=== PATIENT | male | born 1945 | race Two or more races ===

== ENCOUNTER 2017-05-10 11:25 | Emergency (ER) | payer MEDICARE, MEDICAID ==
[~2017-05-10] VITALS: Ht 167.6 cm; Wt 63.5 kg
[~2017-05-10 11:25] MED LIST: CLARITIN10 M2 PO; COZAAR25 MG PO; NORVASC5 MG PO; PRIMIDONE50 MG PO; SIMVASTATIN10 MG PO
[2017-05-10] MEDS ORDERED: METOPROLOL TART50 M1 ORAL (12:14)
[2017-05-10] MEDS ORDERED: IBUPROFEN600 MG ORAL (12:27)
[2017-05-10] MEDS ORDERED: ZITHROMAX250 MG ORAL (12:27)
[2017-05-10] MEDS ORDERED: PROMETHAZINE-D118 ML ORAL (12:27)
[2017-05-10 13:21] VITALS: BP 133/79
[2017-05-10 13:22] VITALS: BP 133/79
--- NOTE | 2017-05-10 14:31 | Emergency Room Report ---
History of Present Illness General Chief Complaint: Upper Respiratory Illness Source: Patient (NA BAXTER) Present Illness HPI The patient is a 72-year-old male presenting for cough since yesterday. He states that his son has the same symptoms. He is expressing an 8/10 dull ache to the back of the throat. Worse with swallowing. He denies any recent travel. He denies fever, chills, shortness of breath, chest pain, hemoptysis (NA BAXTER) Allergies: Coded Allergies: No Known Allergies (Unverified , 04/19/12) Patient History Past Medical History: see triage record Pertinent Family History: none Reviewed Nursing Documentation: PMH: Agreed, PSxH: Agreed (NA BAXTER) Nursing Documentation-PMH Hx Hypertension: Yes (NA BAXTER) Review of Systems All Other Systems: negative except mentioned in HPI (NA BAXTER) Physical Exam Vital Signs Date Time Temp Pulse Resp B/P (MAP) Pulse Ox O2 Delivery O2 Flow Rate FiO2 05/10/17 12:09 99.1 64 16 133/79 96 Room Air Sp02 EP Interpretation: reviewed, normal General Appearance: no apparent distress, alert, GCS 15, non-toxic Head: normocephalic, atraumatic Eyes: bilateral eye normal inspection, bilateral eye PERRL ENT: hearing grossly normal, normal pharynx, no angioedema, normal voice, uvula midline, pharyngeal erythema Neck: full range of motion, supple/symm/no masses Respiratory: chest non-tender, normal breath sounds, no respiratory distress, no accessory muscle use, speaking full sentences, wheezing - RLL Cardiovascular #1: regular rate, rhythm, no edema Musculoskeletal: back normal, gait/station normal, normal range of motion, non- tender Neurologic: alert, oriented x3, responsive, motor strength/tone normal, sensory intact, speech normal Psychiatric: judgement/insight normal, memory normal, mood/affect normal, no suicidal/homicidal ideation Skin: normal color, no rash, warm/dry, well hydrated Lymphatic: no adenopathy (NA BAXTER) Medical Decision Making PA Attestation Dr. Benitez is my supervising physician. Patient management was discussed with my supervising physician (NA BAXTER) Medicare Attestation I, Callie Benitez MD hereby attest that the medical record entry accurately reflects signatures/notations that I made in my capacity as MD when I treated/ diagnosed the above listed Medicare beneficiary. I attest that this information is true, accurate and complete to the best of my knowledge. I understand that any falsification, omission, or concealment of material fact may subject me to administrative, civil, or criminal liability. This patient warrants hospital admission for extreme of age and has a condition that cannot be treated as outpatient. (Callie Benitez M.D.) Diagnostic Impression: Primary Impression: Pharyngitis, acute Qualified Codes: J02.9 - Acute pharyngitis, unspecified ER Course The patient is a 72-year-old male presenting for cough since yesterday. Differential diagnosis include but not limited to pharyngitis, sinusitis, AOM, bronchitis, PNA Physical exam: Vitals within normal limits. Afebrile. No apparent distress HEENT exam: There is pharyngeal erythema. Uvula midline. Moist mucous membranes. Lungs: RLL minimal wheezing, cleared with cough Skin is warm and dry. No rash The patient will be discharged home with a prescription for azithromycin, motrin , cough medication and is given ER precautions. Patient will followup with primary care (NA BAXTER) Last Vital Signs Date Time Temp Pulse Resp B/P (MAP) Pulse Ox O2 Delivery O2 Flow Rate FiO2 05/10/17 13:22 99.1 16 133/79 96 Room Air 05/10/17 13:21 64 Status: improved (NA BAXTER) Disposition: HOME, SELF-CARE Condition: Improved Scripts Azithromycin* (ZITHROMAX*) 250 Mg Tablet 250 MG ORAL DAILY, #6 TAB 0 Refills Take two tables once daily for 1 day, then one tablet once daily for 4 days. Prov: NA BAXTER P.A. 05/10/17 D-Methorphan Hb/Prometh Hcl* (PROMETHAZINE-DM SYRUP*) 118 Ml Syrup 5 ML ORAL Q6H Y for For Cough, #118 ML 0 Refills Prov: NA BAXTER P.A. 05/10/17 Ibuprofen* (MOTRIN*) 600 Mg Tablet 600 MG ORAL Q8H Y for For Pain, #30 TAB 0 Refills Prov: NA BAXTER 05/10/17 Referrals: [facility] (PCP) Patient Instructions: Pharyngitis Additional Instructions: I discussed my findings with the patient. All questions and concerns have been answered. Treatment and medication compliance have been addressed. I advised the patient that they need to follow up with PMD in 3-5 days. Return to ED if pain remains or worsens, cough worsens or remains, you notice blood in your sputum, you notice wheezing, you experience a fever, or if needed for any reason. Patient verbalized understanding of discharge instructions. NA BAXTER May 10, 2017 14:31 Callie Benitez M.D. May 15, 2017 13:52
== END 2017-05-10 13:23 | disposition home or self-care (01) ==
LOC: EMR 11:55
DX: J02.9 Acute pharyngitis, unspecified (principal); I10 Essential (primary) hypertension
CPT/HCPCS: 99284

== ENCOUNTER 2018-07-18 09:09 | Outpatient (CLI) | payer MEDICARE, MEDICAID ==
[~2018-07-18] VITALS: Ht 167.6 cm; Wt 82.6 kg
[~2018-07-18 09:09] MED LIST changes: +IBUPROFEN600 MG ORAL; +METOPROLOL TART50 M1 ORAL; +PROMETHAZINE-D118 ML ORAL; +ZITHROMAX250 MG ORAL
[2018-07-18 13:33] VITALS: BP 138/73
[2018-07-18] MEDS ORDERED: HYDROCHLOROTHIA25 MG ORAL (13:38)
[2018-07-18] MEDS ORDERED: ASPIRIN EC81 MG ORAL (13:38)
--- NOTE | 2018-07-18 19:15 | Consultation ---
DATE OF CONSULTATION: 07/18/2018 CHIEF COMPLAINT: Screening colonoscopy evaluation. HISTORY OF PRESENT ILLNESS: The patient is a 73-year-old male with past medical history of hypertension, coronary artery disease, history of cardiac stent placement in is here for screening colonoscopy evaluation. He has not had any GI symptoms at this time. PAST MEDICAL: 1. Coronary artery disease. 2. Hypertension. PAST SURGICAL HISTORY: Cardiac catheterization and stent placement. MEDICATIONS: Please see medication reconciliation list. FAMILY HISTORY: Noncontributory to GI malignancies. SOCIAL HISTORY: The patient denies any tobacco, alcohol, or drug abuse. ALLERGIES: No known drug allergies. REVIEW OF SYSTEMS: A 10-point review of systems was performed and pertinent positives in HPI. PHYSICAL EXAMINATION: VITAL SIGNS: Temperature is 98, blood pressure 128/73, pulse is 48. HEENT: Normocephalic and atraumatic. Sclerae anicteric. NECK: Supple. No obvious evidence of lymphadenopathy. CARDIOVASCULAR: Regular rate. Plus S1 and S2. LUNGS: Clear to auscultation bilaterally. ABDOMEN: Positive bowel sounds. Soft and nontender. No rebound. No guarding. No peritoneal sign. EXTREMITIES: No cyanosis, no clubbing, no edema. LABORATORY DATA: Not available. ASSESSMENT AND PLAN: This is a 73-year-old male with history of coronary artery disease, on multiple medications. Stained Glass Glazier Helper is Dr. Thalia Kurtz. The patient has been under the care of shipyard supervisor and apparently in the regular visits and on medications. We will plan to schedule him for colonoscopy when authorization is available. The patient was given instruction for colonoscopy with prep instruction and he was told that he is going to get a phone call to be scheduled for colonoscopy. I want to thank Dr. Moustapha Maldonado for this kind referral. Vladimir Wick M.D. DR: Polly JOB#: [id number] CC: Moustapha Maldonado M.D.; Fax#: [phone]
== END 2018-07-18 11:09 | disposition home or self-care (01) ==
LOC: PAN 09:09
DX: Z12.11 Encounter for screening for malignant neoplasm of colon (principal); I11.9 Hypertensive heart disease without heart failure; Z95.5 Presence of coronary angioplasty implant and graft
CPT/HCPCS: 99202

== ENCOUNTER 2018-10-06 08:46 | Day surgery (SDC) | payer OTHER, MEDICARE ==
[2018-10-06] VITALS (8 sets, daily range): BP systolic 113–150; BP diastolic 59–80
[~2018-10-06] VITALS: Ht 167.6 cm; Wt 79.4 kg
[~2018-10-06 08:46] MED LIST changes: +ASPIRIN EC81 MG ORAL; +HYDROCHLOROTHIA25 MG ORAL
[2018-10-06] MEDS ORDERED: Atropine Inj 1mg/10ml Syr IV PRN (09:15)
[2018-10-06] MEDS ORDERED: fentaNYL 100 mcg/2 mL IV PRN (09:15)
[2018-10-06] MEDS ORDERED: Midazolam 2mg/2ml Inj IVP PRN (09:15)
[2018-10-06] MEDS ORDERED: DiphenhydrAMINE 50mg/ml Inj IVP PRN (09:15)
--- NOTE | 2018-10-06 09:15 | Anethesia Preoperative Eval ---
Anesthesia Pre-op PMH/ROS General Date of Evaluation: October 06, 2018 Time of Evaluation: 09:13 Anesthesiologist: tone ASA Score: ASA 4 Mallampati Score Class I : Soft palate, uvula, fauces, pillars visible Class II: Soft palate, uvula, fauces visible Class III: Soft palate, base of uvula visible Class IV: Only hard plate visible Mallampati Classification: Class II Surgeon: antoine Diagnosis: gerd Surgical Procedure: colonoscopy Anesthesia History: none Social History: smoking - nonsmoker Family History: no anesthesia problems Allergies: Coded Allergies: No Known Allergies (Unverified , 10/06/18) Medications: see eMAR Patient NPO?: Yes Past Medical History Cardiovascular: Reports: HTN, CAD, other - cardiac catheterization, coronary stent HEENT: Reports: other - pharyngitis PSxH Narrative: colonoscopy Anesthesia Pre-op Phys. Exam Physician Exam Last Vital Signs Date Time Temp Pulse Resp B/P (MAP) Pulse Ox O2 Delivery O2 Flow Rate FiO2 10/06/18 09:28 Room Air 10/06/18 09:24 97.1 55 18 113/59 98 Constitutional: NAD Neurologic: CN 2-12 intact Cardiovascular: RRR Respiratory: CTA Gastrointestinal: S/NT/ND Airway Exam Mallampati Score: Class II MO: limited Neck: flexible TMD: 2fb ROM: limited Anesthesia Pre-op A/P Studies Pre-op Studies: EKG - sinus bradycardia Risk Assessment & Plan Assessment: asa4 Plan: mac Status Change Before Surgery: No Pre-Antibiotics Drug: Alexandra Aguilar MD October 06, 2018 09:15
[2018-10-06] MEDS ORDERED: HYDRALAZINE HCL50 MG ORAL (09:23)
[2018-10-06] MEDS ORDERED: Lidocaine 1% MPF 10mg/ml 5ml ONE (10:00)
[2018-10-06] MEDS ORDERED: Atropine Sulfate 0.4mg/ml inj ONE (10:00)
[2018-10-06] MEDS ORDERED: Propofol 200mg/20ml IV ONE (10:00)
--- NOTE | 2018-10-06 10:11 | Short Stay Surgery H&P ---
History of Present Illness History of Present Illness Chief Complaint see recent office note HPI Rishi Rosenthal is a 73 year old male who was admitted on for GERD Patient History Allergies: Coded Allergies: No Known Allergies (Unverified , 10/06/18) Medication History Scheduled Aspirin Ec* (Aspirin Ec*), 81 MG ORAL DAILY, (Reported) Hydralazine Hcl* (Hydralazine Hcl*), 50 MG ORAL BID, (Reported) Hydrochlorothiazide* (Hydrochlorothiazide*), Unknown Dose ORAL DAILY, (Reported) Losartan Potassium* (Cozaar*), 100 MG PO DAILY, (Reported) Metoprolol Tartrate* (Metoprolol Tartrate*), 50 MG ORAL EVERY 12 HOURS, ( Reported) Primidone* (Mysoline*), 50 MG PO BID, (Reported) Simvastatin (Zocor), 10 MG PO QHS, (Reported) Discontinued Medications Amlodipine Besylate (Norvasc), 5 MG PO DAILY, (Reported) Discontinued Reason: Pt stopped taking med Physical Exam Vital Signs Last Vital Signs Date Time Temp Pulse Resp B/P (MAP) Pulse Ox O2 Delivery O2 Flow Rate FiO2 10/06/18 09:28 Room Air 10/06/18 09:24 97.1 55 18 113/59 98 Plan Attestation Are the patient's medical conditions optimized for surgery? Vladimir Wick MD October 06, 2018 10:11
--- NOTE | 2018-10-06 10:11 | Pre-Procedure Note/Attestation ---
Pre-Procedure Note/Attestation Complete Prior to Procedure Planned Procedure: not applicable Procedure Narrative: colonoscopy Indications for Procedure Pre-Operative Diagnosis: screening Attestation I attest that I discussed the nature of the procedure; its benefits; risks and complications; and alternatives (and the risks and benefits of such alternatives ), prior to the procedure, with the patient (or the patient's legal senior sales representative). I attest that, if there was a reasonable possibility of needing a blood transfusion, the patient (or the patient's legal senior sales representative) was given the [facility] standardized written summary, pursuant to the [place] Blood Safety Act ([place] Health and Safety Code # 1645, as amended). I attest that I re-evaluated the patient just prior to the surgery and that there has been no change in the patient's H&P, except as documented below: Vladimir Wick MD October 06, 2018 10:11
--- NOTE | 2018-10-06 10:35 | Endoscopy Procedure Note ---
Endoscopy Procedure Note General Indication for Procedure: screening Procedures Performed: colonoscopy Operative Findings/Diagnosis: hemorrhoids Specimen: none Pt Tolerated Procedure Well: Yes Estimated Blood Loss: none Anesthesia Anesthesiologist: tone Anesthesia: MAC Inserted Devices Implant(s) used?: No Quality Quality of Bowel Preparation: Excellent Did scope reach the cecum?: Yes Was there any complications?: No GI Core Measures 50 yrs or older w/o bx or poly: No 10yrs. F/U recommended: Yes If not recommended, why?: Above average risk 18 years or older w/prev. colo: No Vladimir Wick MD October 06, 2018 10:35
--- NOTE | 2018-10-06 10:58 | Immediate Post-Op Evaluation ---
Immediate Post-Op Evalulation Immediate Post-Op Evalulation Procedure: colonoscopy Date of Evaluation: October 06, 2018 Time of Evaluation: 10:56 IV Fluids: 300ml 0.9ns Blood Products: none Estimated Blood Loss: negligible Blood Pressure Systolic: 150 Blood Pressure Diastolic: 64 Pulse Rate: 52 Respiratory Rate: 18 O2 Sat by Pulse Oximetry: 100 Temperature (Fahrenheit): 97.2 Pain Score (1-10): 0 Nausea: No Vomiting: No Complications none Patient Status: awake, reacts, patent Hydration Status: adequate Drug: Alexandra Aguilar MD October 06, 2018 10:58
--- NOTE | 2018-10-06 11:00 | 48 Hour Post Anesthesia Eval ---
Post Anesthesia Evaluation Procedure: colonoscopy Date of Evaluation: October 06, 2018 Time of Evaluation: 10:59 Blood Pressure Systolic: 148 0: 64 Pulse Rate: 55 Respiratory Rate: 18 Temperature (Fahrenheit): 97.2 O2 Sat by Pulse Oximetry: 100 Airway: patent Nausea: No Vomiting: No Pain Intensity: 0 Hydration Status: adequate Cardiopulmonary Status: stable Mental Status/LOC: patient returned to baseline Post-Anesthesia Complications: none Follow-up care needed: N/A Alexandra Brower MD October 06, 2018 11:00
--- NOTE | 2018-10-06 17:15 | Procedure Note ---
DATE OF PROCEDURE: 10/06/2018 SURGEON: Vladimir Wick M.D. PROCEDURE: Colonoscopy. ANESTHESIA: Per Dr. Gonzales. INSTRUMENT: Olympus adult flexible colonoscope. INDICATION: Screening colonoscopy. REASON FOR PROCEDURE: The procedure, risks, benefits, and possible consequences, including hemorrhage, aspiration, perforation and infection, and alternative treatments, were explained to the patient/legal guardian by Dr. Vladimir Wick and the patient/legal guardian understood and accepted these risks. PROCEDURE IN DETAIL: After informed consent was obtained and the patient was adequately sedated, first rectal exam was performed, which was normal. Then, the scope was advanced from the rectum into the cecum documented by appendiceal orifice, ileocecal valve, and right upper quadrant palpation. Quality of prep was very good. The patient had normal colonoscopy examination without any obvious finding. Retroflexion of rectum showed evidence of small nonbleeding internal hemorrhoids. SUMMARY OF FINDINGS: 1. Normal colonoscopy examination with good prep. 2. Internal hemorrhoids. RECOMMENDATIONS: The patient might not need any repeat colonoscopy given his age of 73, and no polyps and he most probably will not need any more further colonoscopy in future. Vladimir Wick M.D. DR: Polly JOB#: [id number] CC:
--- NOTE | 2018-11-03 12:45 | Cardiology Report ---
APPROVED REPORT EKG Measurement Heart [id number] Sinus bradycardia with premature atrial complexes Otherwise normal ECG
== END 2018-10-06 12:40 | disposition home or self-care (01) ==
LOC: GAS 08:46
DX: Z12.11 Encounter for screening for malignant neoplasm of colon (principal); K64.8 Other hemorrhoids; K21.9 Gastro-esophageal reflux disease without esophagitis; Z79.82 Long term (current) use of aspirin; Z79.899 Other long term (current) drug therapy; I11.9 Hypertensive heart disease without heart failure; Z95.5 Presence of coronary angioplasty implant and graft; R00.1 Bradycardia, unspecified
CPT/HCPCS: 93005; G0121; J0461; J2704; 94003; 94150